=== PATIENT | male | born 1990 ===

== ENCOUNTER 2018-09-06 20:55 | Emergency (ER) | payer MEDICAID ==
[2018-09-06 20:59] VITALS: BMI 26.6
[2018-09-06 21:02] VITALS: RESP 18; O2SAT 93
[2018-09-06] MEDS ORDERED: Sodium Chloride 0.9% 1,000 ML IV STA (21:54)
--- NOTE | 2018-09-06 22:09 | ED PDOC ---
HPI: Seizure Time Seen by Provider: 09/06/18 21:26 Chief Complaint (Nursing): Seizure History Per: Patient, Family History/Exam Limitations: no limitations Recent Seizure Activity Began: Just Before Arrival Number Of Seizures: One Additional Complaint(s): 27 year old with history of seizure disorder and hemorrhagic CVA presenting with possible seizure. Patient was in good condition all day, sister states that she heard abnormal sounds coming from the bathroom and kicked down the door, found her brother slumped up against the wall, barely responsive according to sister. Patient currently post-ictal, states he can't remember anything that happened today and states he has a headache. Patient states that he may have missed a dose of keppra. PMD: Dr. Workman Past Medical History Reviewed: Historical Data, Nursing Documentation, Vital Signs Vital Signs: Last Vital Signs Temp 96.6 F L 09/06/18 20:59 Pulse 111 H 09/06/18 20:59 Resp 18 09/06/18 20:59 BP 114/94 H 09/06/18 20:59 Pulse Ox 93 L 09/06/18 20:59 - Medical History Other PMH: Seizure - Family History Family History: States: Unknown Family Hx - Allergies Allergies/Adverse Reactions: Allergies Allergy/AdvReac Type Severity Reaction Status Date / Time No Known Allergies Allergy Verified 09/06/18 20:59 Review of Systems Review Of Systems: ROS cannot be obtained secondary to pt's inabilty to answer questions. Physical Exam - Reviewed Nursing Documentation Reviewed: Yes Vital Signs Reviewed: Yes - Physical Exam Appears: Negative for: Well (Weak appearing) Head Exam: Positive for: ATRAUMATIC, NORMAL INSPECTION, NORMOCEPHALIC Skin: Positive for: Normal Color, Warm, DRY Eye Exam: Positive for: EOMI, Normal appearance, PERRL ENT: Positive for: Normal ENT Inspection Neck: Positive for: Normal, Painless ROM Cardiovascular/Chest: Positive for: Regular Rate, Rhythm Respiratory: Positive for: CNT, Normal Breath Sounds Gastrointestinal/Abdominal: Positive for: Normal Exam, Soft Back: Positive for: Normal Inspection Extremity: Positive for: Normal ROM Neurologic/Psych: Positive for: Alert, Oriented - Laboratory Results Result Diagrams: 09/06/18 22:19 09/06/18 22:19 - ECG O2 Sat by Pulse Oximetry: 93 Medical Decision Making Medical Decision Making: Time: 2338 CT HEAD RESULTS FINDINGS: BRAIN Encephalomalacia involving left parietal lobe, 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 VENTRICLES: No hydrocephalus. ORBITS: The orbits are unremarkable. SINUSES AND MASTOIDS: The paranasal sinuses and mastoid air cells are clear. BONES: S/p left frontoparietal craniotomy. SOFT TISSUES: Unremarkable. IMPRESSION: 1. S/p left frontoparietal craniotomy. 2. 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 3. No acute pathology. Electronically signed on Sep 06, 2018 11:39:04 PM EST by: Raymond Jiménez M.D., SHARDA Certified By [employer] Trained MRI and CT Specialist Time: 2339 CT MAXILLOFACIAL RESULTS FINDINGS: BONES: No acute fracture or aggressive appearing osseous lesion. The mandible is intact. SOFT TISSUES: The soft tissues are unremarkable. SINUSES: Bilateral ethmoid and maxillary sinusitis. ORBITS: The orbits are normal. No retrobulbar hematoma or mass. IMPRESSION: Bilateral ethmoid and maxillary sinusitis. No acute pathology. Electronically signed on Sep 06, 2018 11:40:58 PM EST by: Raymond Jiménez M.D., SHARDA Certified By [employer] [facility] Trained MRI and CT Specialist Time: 431 -- On re-evaluation, patient appears well and is tolerating PO. Patient instructed to follow up with PMD for further management. -- No further seizures in ER. Advised to followup with neurologist as outpatient -- Patient was able to walk around ER without difficutly Scribe Attestation: Documented by Eric Rodas, acting as a scribe for Provider Scribe Attestation: All medical record entries made by the Scribe were at my direction and personally dictated by me. I have reviewed the chart and agree that the record accurately reflects my personal performance of the medical decision making for this patient. I have also personally directed, reviewed, and agree with the discharge instructions and disposition. Disposition - Clinical Impression Clinical Impression: Seizure disorder - Patient ED Disposition Is Patient to be Admitted: No - Disposition Referrals: Alex Workman MD [Family Provider] - Disposition: Routine/Home Disposition Time: 05:37 Condition: IMPROVED Instructions: Seizures, Adult (DC) Forms: Nano (Azeri)
[2018-09-06 22:27] LABS: BASO # 0.1 K/uL (0.0-0.2); BASO % 0.5 % (0.0-2.0); EOS # 0.1 K/uL (0.0-0.7); EOS % 0.5 % (0.0-4.0); HEMOGLOBIN 16.7 g/dL (12.0-18.0); LYMPH # 1.9 K/uL (1.0-4.3); LYMPH % 10.8 % (20.0-40.0); MEAN CELL VOLUME 88.2 fl (80.0-94.0); MEAN CORPUSCULAR HGB CONC 32.8 g/dL (33.0-37.0); MEAN PLATELET VOLUME 9.6 fl (7.2-11.7); MONO # 0.3 K/uL (0.0-0.8); MONO % 1.9 % (0.0-10.0); NEUT # 15.5 K/uL (1.8-7.0); NEUT % 86.3 % (50.0-75.0); RBC 5.76 Mil/uL (4.40-5.90); RED CELL DISTRIBUTION WIDTH 13.1 % (11.5-14.5); WHITE BLOOD COUNT 17.9 K/uL (4.8-10.8)
[2018-09-06 22:36] LABS: ALB/GLOB RATIO 1.4 (1.0-2.1); ALT/SGPT 46 U/L (21-72); AST/SGOT 35 U/L (17-59); BLOOD UREA NITROGEN 10 mg/dl (9-20); CALCIUM 9.7 mg/dL (8.4-10.2); GFR NON-AFRICAN AMERICAN > 60
[2018-09-07] MEDS ORDERED: Sodium Chloride 0.9% 1,000 ML IV STA (03:04)
[2018-09-07 05:43] VITALS: BP 129/86; PULSE 82; TEMP 98
--- NOTE | 2018-09-07 10:13 | RAD ---
Date of service: 09/06/2018 PROCEDURE: CHEST RADIOGRAPH, 1 VIEW HISTORY: seizure COMPARISON: None available. FINDINGS: LUNGS: Clear. PLEURA: No pneumothorax or pleural fluid seen. CARDIOVASCULAR: No aortic atherosclerotic calcification present. Normal. OSSEOUS STRUCTURES: No significant abnormalities. VISUALIZED UPPER ABDOMEN: Normal. OTHER FINDINGS: None. IMPRESSION: No active disease.
--- NOTE | 2018-09-07 10:39 | CT ---
Date of service: 09/06/2018 PROCEDURE: CT HEAD WITHOUT CONTRAST. HISTORY: head injury, seizure COMPARISON: None available. TECHNIQUE: Axial computed tomography images were obtained through the head/brain without intravenous contrast. Radiation dose: Total exam DLP = 947.33 mGy-cm. This CT exam was performed using one or more of the following dose reduction techniques: Automated exposure control, adjustment of the mA and/or kV according to patient size, and/or use of iterative reconstruction technique. FINDINGS: HEMORRHAGE: No intracranial hemorrhage. BRAIN: Left parietal encephalomalacia. No acute lobar infarct. VENTRICLES: Mild ex vacuo dilatation of the left temporal horn. No hydrocephalus. CALVARIUM: Prior left frontoparietal craniotomy/cranioplasty PARANASAL SINUSES: Unremarkable as visualized. No significant inflammatory changes. MASTOID AIR CELLS: Unremarkable as visualized. No inflammatory changes. OTHER FINDINGS: None. IMPRESSION: Prior left frontoparietal craniotomy/cranioplasty. 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 No acute intracranial pathology or hemorrhage.
--- NOTE | 2018-09-07 10:41 | CT ---
Date of service: 09/06/2018 PROCEDURE: CT MAXILLOFACIAL BONES WITHOUT CONTRAST HISTORY: seizure, head injury COMPARISON: None available. TECHNIQUE: Contiguous axial CT images of the maxillofacial bones were obtained. Coronal and sagittal reformats were generated. Radiation dose: Total exam DLP = 855.26 mGy-cm. This CT exam was performed using one or more of the following dose reduction techniques: Automated exposure control, adjustment of the mA and/or kV according to patient size, and/or use of iterative reconstruction technique. FINDINGS: NASAL BONES: Unremarkable. ORBITS: Unremarkable. PARANASAL SINUSES/ MASTOIDS: Clear. MAXILLA: Unremarkable. MANDIBLE/ TEMPOROMANDIBULAR JOINTS: Unremarkable. SKULL BASE: Unremarkable. TEMPORAL BONES: Middle ears and mastoid grossly unremarkable. OTHER FINDINGS: Prior left frontoparietal craniotomy/cranioplasty. IMPRESSION: No acute facial bone fracture.
== END 2018-09-07 05:05 | disposition home or self-care (01) ==
LOC: H.ER 20:55
DX: G40.909 Epilepsy, unspecified, not intractable, without status epilepticus (principal); J32.0 Chronic maxillary sinusitis
CPT/HCPCS: 70450; 70486; 71045; 80053; 80177; 80320; 82550; 83605; 85025; 99285; J7030